=== PATIENT | male | born 1945 | race Caucasian/White ===

== ENCOUNTER 2017-09-14 05:03 | Inpatient (IN) ==
[2017-09-14] MEDS ORDERED: 0.9 % Sodium Chloride 1,000 ML IVC ONE (05:09)
--- NOTE | 2017-09-14 05:29 | Emergency Department Note ---
START Narrative - START START: Nursing notes a been reviewed. Vital signs have been reviewed. 72-year-old male with lung cancer diagnosed last year, recently completed three rounds of radiation therapy presents from home for evaluation of "coughing up blood since yesterday." He states that yesterday he had some blood streaks in the sputum. This morning It has been "just blood". He is feeling a little more short of breath than usual. He is afebrile and is not tachycardic. Blood pressure is on the low side of normal. Oxygen saturation is at 89% on 3 L by nasal cannula. This increases to 96% on nonrebreather. He has a small amount of bright red blood in the posterior pharynx and has had some surgical changes to the right side of the nose. However, I do not see any blood in the nares. He has an emesis basin with approximately 20 mL of bright red blood. He has coarse rhonchi in the right base, but otherwise is clear. Two large-bore IVs have been ordered along with labs. CTA will be ordered If his creatinine is amenable. Case has been discussed with Dr. Tadeo. He has had [id number] time with the patient and agrees with the assessment and plan to keep the patient here. He states that we do have pulmonology available. <Muna Ramirez - Last Filed: 09/14/17 05:19> Attestation Statement - Attestation Attestation: I, Kevin Tadeo MD, personally evaluated this patient and discussed their management with the midlevel provicer, PAC/NAILING MACHINE OPERATOR [employer]. I reviewed the midlevel provider 's note and agree with the documented findings, medical decision making, and plan of care. 72-year-old male with history of known lung cancer who just finished radiation treatments a few weeks ago presents to the emergency department with a complaint of some increased shortness of breath for the past one week. He developed a cough 3 days ago. Yesterday he coughed up some sputum with streaks of blood and this morning he woke up thinking up gross bright red blood. On examination patient is a well-developed well-nourished male in no acute distress. He is mildly tachypneic. He is alert and oriented 3. There is no cyanosis or diaphoresis. Breath sounds are decreased bilaterally, more so on the left. There are a few scattered wheezes on the right. Chest is nontender to palpation. Heart regular rate and rhythm. Abdomen soft with normal bowel sounds. Workup initiated. Hemoglobin 15. Chest x-ray shows an enlarging right lower lobe nodule and persistent opacity adjacent to the left hilum. At shift change patient was signed over to the oncoming mid-level provider, Zbigniew Novak, and the Physician, Dr. Gaspar. <Kevin Tadeo - Last Filed: 09/14/17 06:17>
[2017-09-14 05:36] LABS: Basophils # 0.1 K/mcL (0.0-0.2); Basophils % 1.3 %; Eosinophils # 1.2 K/mcL (0.0-0.6); Eosinophils % 14.3 %; Hematocrit 42.9 % (37.5-50.1); Hemoglobin 15.1 g/dL (12.9-16.9); Immature Granulocytes % 0.2 % (0-4); Immature Platelets 4.9 % (1.1-6.1); Lymphocytes # 2.2 K/mcL (0.6-4.6); Mean Corpuscular HGB Conc 35.2 g/dL (31.6-35.5); Mean Corpuscular Hemoglobin 34.1 pg (28.0-33.3); Mean Corpuscular Volume 96.8 fL (83.0-100.0); Mean Platelet Volume 9.5 fL (9.4-12.4); Monocytes # 0.7 K/mcL (0.0-1.3); Monocytes % 8.5 %; Neutrophils # 4.1 K/mcL (1.6-8.9); Platelet Count 197 K/mcL (140-400); Red Blood Count 4.43 M/mcL (4.19-5.50); Red Cell Distribution Width 12.7 % (11.5-14.5); Segmented Neutrophils % 49.7 %
[2017-09-14 05:47] LABS: BUN/Creatinine Ratio 5 (6-26); Calcium 9.3 mg/dL (8.6-10.8); Carbon Dioxide 29 mEq/L (19-29); Chloride 102 mEq/L (98-109); Glucose 112 mg/dL (70-99); Osmolality,Calculated 284 (280-300); Potassium 3.2 mEq/L (3.5-4.5); Prothrombin Time 10.4 Seconds (9.4-12.1); Sodium 138 mEq/L (136-145); eGFR For African Americans > 60 (> 60); eGFR For Non-African Americans > 60 (> 60)
[2017-09-14 05:48] LABS: Blood Urea Nitrogen 4 mg/dL (8-26)
--- NOTE | 2017-09-14 06:40 | Emergency Department Note ---
Disposition Clinical Impression: Adenocarcinoma of right lung, Hemoptysis, Shortness of breath Disposition: Admitted As Inpatient Condition: Fair [facility]errals: [facility] [Primary Care Provider[facility] - Forms: ED Satisfaction Letter, Work/School Release Time of Disposition: 08:17 SOB HPI - General Chief Complaint: ED General Medical Stated Complaint: coughing up blood Time Seen by Provider: 09/14/17 05:09 Source: patient Mode of arrival: ambulatory Limitations: no limitations Nursing Notes Reviewed: Yes Vital Signs Reviewed: Yes - History of Present Illness 72-year-old male who presents for complaints of "coughing up blood since yesterday". He states that yesterday, his sputum was only blood streaked, however this changed to Lester red blood in his sputum. He complains of worsening shortness of breath as well. He recently completed 3 rounds of radiation therapy. His oncologist is here at the cancer center. He states he is unsure as to whether or not they are going to begin him on chemotherapy next. He states "at first I thought I might of been getting the flu". He denies any fever, chills, nausea, vomiting, abdominal pain, or pain with inspiration. He denies any chest pain. Pt Subjective Complaint: shortness of breath (With lester hemoptysis) Severity: moderate Consistency/Duration: gradually worsening Improves with: oxygen Known history of: other (Lung cancer) Associated symptoms: Reports: cough, sputum production, hemoptysis. Denies: pain with inspiration, fever, wheezing, diaphoresis, nausea/vomiting, abdominal pain Treatment prior to arrival: none Cough present: Yes Sputum Color: Lester Red Blood - Related Data Home oxygen amount: none Home Medications Medication Instructions Recorded Confirmed Albuterol Sulfate [Albuterol 2 puff IH Q6HR PRN 07/03/17 08/19/17 Inhaler] Aspirin Enteric Coated [Aspirin EC] 325 mg PO DAILY 07/03/17 08/19/17 Atorvastatin Calcium [Lipitor] 0.5 tab PO DAILY 07/03/17 08/19/17 Lisinopril [Zestril] 40 mg PO DAILY 07/03/17 08/19/17 Metoprolol [Lopressor] 0.5 tab PO BID 07/03/17 08/19/17 Mometasone Furoate [Asmanex] 2 puff IH BID 07/03/17 08/19/17 Multivitamin [Multi-Day Vitamins] 1 each PO DAILY 07/03/17 08/19/17 OLANZapine [Zyprexa] 5 mg PO QID PRN 07/03/17 08/19/17 amLODIPine [Norvasc] 5 mg PO DAILY 07/03/17 08/19/17 hydrOXYzine HCl [Hydroxyzine HCl] 25 mg PO QID PRN 07/03/17 08/19/17 hydroCHLOROthiazide 0.5 tab PO DAILY 07/03/17 08/19/17 [Hydrochlorothiazide] Allergies Allergy/AdvReac Type Severity Reaction Status Date / Time codeine Allergy Hives Verified 08/19/17 10:49 All systems ED: reviewed and negative except as stated. Constitutional: Denies: fever, chills, weakness, weight change Eyes: Denies: eye pain, eye discharge, vision change ENT ED: Denies: ear pain, throat pain, dental pain, hearing loss, epistaxis, congestion, dysphagia Cardiovascular: Denies: chest pain, palpitations, dyspnea on exertion, edema, syncope Respiratory: Reports: as per HPI, cough, dyspnea, hemoptysis. Denies: wheezes, stridor Gastrointestinal: Denies: abdominal pain, nausea, vomiting, diarrhea, constipation, hematemesis, melena, hematochezia Genitourinary: Denies: urgency, dysuria, frequency, hematuria Musculoskeletal: Denies: back pain, neck pain, arthralgia, myalgia Integumentary: Denies: rash, abrasion, lesions Neurological: Denies: headache, weakness, numbness, paresthesias, confusion, abnormal gait, vertigo Psychiatric: Denies: anxiety, depression, suicidal thoughts, homicidal thoughts , auditory hallucinations, visual hallucinations Endocrine: Denies: fatigue Hematological/Lymphatic: Denies: easy bleeding, easy bruising Allergic/Immunologic: Denies: facial swelling, urticaria Past Medical History - Past Medical History Attestation: Yes The following information was validated with the patient. Source: patient, nursing notes reviewed Medical history: Reports: cancer, COPD, hyperlipidemia, hypertension - Social History Smoking Status: Current every day smoker Smokeless Tobacco Status: No Alcohol use: Reports: heavy Drug use: Reports: none Physical Exam - General General appearance: alert, in no apparent distress - Head Head exam: atraumatic, normocephalic, normal inspection - Eye Eye exam: Present: normal appearance, PERRL, EOMI. Absent: nystagmus - ENT ENT exam: mucous membranes moist - Neck Neck exam: Present: normal inspection, full ROM, trachea midline - Chest Chest inspection: Present: normal inspection, symmetric chest wall rise - Respiratory Respiratory exam: Present: other (Lungs sounds coarse to auscultation, posterior aspect, left lower chest). Absent: respiratory distress, wheezes, stridor, accessory muscle use, prolonged expiratory phase - Cardiovascular Cardiovascular exam: Present: regular rate, normal rhythm, normal heart sounds - Abdominal Exam Abdominal exam: Present: soft, Non-Tender, normal bowel sounds - Extremities Exam Extremities exam: Present: normal inspection, full ROM. Absent: tenderness, pedal edema - Neurological Exam Neurological exam: Present: alert, oriented X3 - Psychiatric Psychiatric exam: Present: normal affect, normal mood - Skin Skin exam: Present: warm, dry, intact, normal color Course Course Narrative: This patient's case has been discussed with Dr. Tadeo. Dr. Tadeo has had a [id number] evaluation with the patient. 0730: Spoke with Dr. Torres, pulmonary regional liaison. Dr. Torres recommends IV Rocephin, azithromycin, with holding his daily aspirin, and states that the patient can be placed on 2 N. and that he will see the patient on the floor as a consult. 0810: I spoke with Dr. Chavira of the hospitalist service, who accepts the patient for admission to his service. 0905: I spoke with Dr. Torres again after being notified by bed management that the only bed available at this time and for the foreseeable future is a bed on 3B. The patient is saturating 98% on [address] Torres states that he feels comfortable with the patient going to 3B and that he will monitor the patient and check on him frequently. Vital Signs Temperature 98.5 F 09/14/17 05:11 Pulse Rate 99 09/14/17 05:11 Respiratory Rate 20 09/14/17 05:11 Blood Pressure 162/93 09/14/17 05:11 O2 Sat by Pulse Oximetry 89 09/14/17 05:11 Temperature 98.5 F 09/14/17 05:11 Pulse Rate 92 09/14/17 08:56 Respiratory Rate 18 09/14/17 08:56 Blood Pressure 141/84 09/14/17 08:56 O2 Sat by Pulse Oximetry 97 09/14/17 08:56 Oxygen Delivery Oxygen Delivery Nasal Cannula Shortness of Breath/Dyspnea - Medical Records Medical records reviewed: Yes I reviewed the patient's medical records. - Lab Data Lab results reviewed: Yes I reviewed the patient's lab results. Lab results narrative: Laboratory Last Values WBC 8.3 K/mcL (4.3-11.1) 09/14/17 05:25 RBC 4.43 M/mcL (4.19-5.50) 09/14/17 05:25 Hgb 15.1 g/dL (12.9-16.9) 09/14/17 05:25 Hct 42.9 % (37.5-50.1) 09/14/17 05:25 MCV 96.8 fL (83.0-100.0) 09/14/17 05:25 MCH 34.1 pg (28.0-33.3) H 09/14/17 05:25 MCHC 35.2 g/dL (31.6-35.5) 09/14/17 05:25 RDW 12.7 % (11.5-14.5) 09/14/17 05:25 Plt Count 197 K/mcL (140-400) 09/14/17 05:25 MPV 9.5 fL (9.4-12.4) 09/14/17 05:25 Immature Gran % 0.2 % (0-4) 09/14/17 05:25 Seg Neutrophils % 49.7 % 09/14/17 05:25 Lymphocytes % 26.0 % 09/14/17 05:25 Monocytes % 8.5 % 09/14/17 05:25 Eosinophils % 14.3 % 09/14/17 05:25 Basophils % 1.3 % 09/14/17 05:25 Neutrophils # 4.1 K/mcL (1.6-8.9) 09/14/17 05:25 Lymphocytes # 2.2 K/mcL (0.6-4.6) 09/14/17 05:25 Monocytes # 0.7 K/mcL (0.0-1.3) 09/14/17 05:25 Eosinophils # 1.2 K/mcL (0.0-0.6) H 09/14/17 05:25 Basophils # 0.1 K/mcL (0.0-0.2) 09/14/17 05:25 Immature Plt Fraction 4.9 % (1.1-6.1) 09/14/17 05:25 PT 10.4 Seconds (9.4-12.1) 09/14/17 05:25 INR 1.0 09/14/17 05:25 APTT 30.0 Seconds (26.0-36.0) 09/14/17 05:25 Sodium 138 mEq/L (136-145) 09/14/17 05:25 Potassium 3.2 mEq/L (3.5-4.5) L 09/14/17 05:25 Chloride 102 mEq/L (98-109) 09/14/17 05:25 Carbon Dioxide 29 mEq/L (19-29) 09/14/17 05:25 BUN 4 mg/dL (8-26) L 09/14/17 05:25 Creatinine 0.73 mg/dL (0.72-1.25) 09/14/17 05:25 Est GFR ( Amer) > 60 (> 60) 09/14/17 05:25 Est GFR (Non-Af Amer) > 60 (> 60) 09/14/17 05:25 BUN/Creatinine Ratio 5 (6-26) L 09/14/17 05:25 Glucose 112 mg/dL (70-99) H 09/14/17 05:25 Calculated Osmolality 284 (280-300) 09/14/17 05:25 Lactic Acid 1.1 mmol/L (0.5-2.2) 09/14/17 05:25 Calcium 9.3 mg/dL (8.6-10.8) 09/14/17 05:25 Troponin I 0.02 ng/mL (0-0.03) 09/14/17 05:25 B-Natriuretic Peptide 130 pg/mL (0-100) H 09/14/17 05:25 Result diagrams: 09/14/17 05:25 09/14/17 05:25 Lab Results 09/14/17 09/14/17 09/14/17 Range/Units 05:25 05:25 05:25 WBC 8.3 (4.3-11.1) K/mcL RBC 4.43 (4.19-5.50) M/mcL Hgb 15.1 (12.9-16.9) g/dL Hct 42.9 (37.5-50.1) % MCV 96.8 (83.0-100.0) fL MCH 34.1 H (28.0-33.3) pg MCHC 35.2 (31.6-35.5) g/dL RDW 12.7 (11.5-14.5) % Plt Count 197 (140-400) K/mcL MPV 9.5 (9.4-12.4) fL Immature Gran % 0.2 (0-4) % Seg Neutrophils % 49.7 % Lymphocytes % 26.0 % Monocytes % 8.5 % Eosinophils % 14.3 % Basophils % 1.3 % Neutrophils # 4.1 (1.6-8.9) K/mcL Lymphocytes # 2.2 (0.6-4.6) K/mcL Monocytes # 0.7 (0.0-1.3) K/mcL Eosinophils # 1.2 H (0.0-0.6) K/mcL Basophils # 0.1 (0.0-0.2) K/mcL Immature Plt Fraction 4.9 (1.1-6.1) % PT 10.4 (9.4-12.1) Seconds INR 1.0 APTT 30.0 (26.0-36.0) Seconds Sodium 138 (136-145) mEq/L Potassium 3.2 L (3.5-4.5) mEq/L Chloride 102 (98-109) mEq/L Carbon Dioxide 29 (19-29) mEq/L BUN 4 L (8-26) mg/dL Creatinine 0.73 (0.72-1.25) mg/dL Est GFR ( Amer) > 60 (> 60) Est GFR (Non-Af Amer) > 60 (> 60) BUN/Creatinine Ratio 5 L (6-26) Glucose 112 H (70-99) mg/dL Calculated Osmolality 284 (280-300) Lactic Acid (0.5-2.2) mmol/L Calcium 9.3 (8.6-10.8) mg/dL Troponin I (0-0.03) ng/mL B-Natriuretic Peptide (0-100) pg/mL Blood Type Antibody Screen 09/14/17 09/14/17 09/14/17 Range/Units 05:25 05:25 05:25 WBC (4.3-11.1) K/mcL RBC (4.19-5.50) M/mcL Hgb (12.9-16.9) g/dL Hct (37.5-50.1) % MCV (83.0-100.0) fL MCH (28.0-33.3) pg MCHC (31.6-35.5) g/dL RDW (11.5-14.5) % Plt Count (140-400) K/mcL MPV (9.4-12.4) fL Immature Gran % (0-4) % Seg Neutrophils % % Lymphocytes % % Monocytes % % Eosinophils % % Basophils % % Neutrophils # (1.6-8.9) K/mcL Lymphocytes # (0.6-4.6) K/mcL Monocytes # (0.0-1.3) K/mcL Eosinophils # (0.0-0.6) K/mcL Basophils # (0.0-0.2) K/mcL Immature Plt Fraction (1.1-6.1) % PT (9.4-12.1) Seconds INR APTT (26.0-36.0) Seconds Sodium (136-145) mEq/L Potassium (3.5-4.5) mEq/L Chloride (98-109) mEq/L Carbon Dioxide (19-29) mEq/L BUN (8-26) mg/dL Creatinine (0.72-1.25) mg/dL Est GFR ( Amer) (> 60) Est GFR (Non-Af Amer) (> 60) BUN/Creatinine Ratio (6-26) Glucose (70-99) mg/dL Calculated Osmolality (280-300) Lactic Acid 1.1 (0.5-2.2) mmol/L Calcium (8.6-10.8) mg/dL Troponin I 0.02 (0-0.03) ng/mL B-Natriuretic Peptide 130 H (0-100) pg/mL Blood Type Antibody Screen 09/14/17 09/14/17 Range/Units 05:25 07:02 WBC (4.3-11.1) K/mcL RBC (4.19-5.50) M/mcL Hgb (12.9-16.9) g/dL Hct (37.5-50.1) % MCV (83.0-100.0) fL MCH (28.0-33.3) pg MCHC (31.6-35.5) g/dL RDW (11.5-14.5) % Plt Count (140-400) K/mcL MPV (9.4-12.4) fL Immature Gran % (0-4) % Seg Neutrophils % % Lymphocytes % % Monocytes % % Eosinophils % % Basophils % % Neutrophils # (1.6-8.9) K/mcL Lymphocytes # (0.6-4.6) K/mcL Monocytes # (0.0-1.3) K/mcL Eosinophils # (0.0-0.6) K/mcL Basophils # (0.0-0.2) K/mcL Immature Plt Fraction (1.1-6.1) % PT (9.4-12.1) Seconds INR APTT (26.0-36.0) Seconds Sodium (136-145) mEq/L Potassium (3.5-4.5) mEq/L Chloride (98-109) mEq/L Carbon Dioxide (19-29) mEq/L BUN (8-26) mg/dL Creatinine (0.72-1.25) mg/dL Est GFR ( Amer) (> 60) Est GFR (Non-Af Amer) (> 60) BUN/Creatinine Ratio (6-26) Glucose (70-99) mg/dL Calculated Osmolality (280-300) Lactic Acid 0.6 (0.5-2.2) mmol/L Calcium (8.6-10.8) mg/dL Troponin I (0-0.03) ng/mL B-Natriuretic Peptide (0-100) pg/mL Blood Type O POSITIVE Antibody Screen NEGATIVE - Radiology Data Radiology results reviewed: Yes I reviewed the patient's radiology results. Chest X-Ray 09/14/17 05:09 IMPRESSION: 1. Enlarging right lower lobe nodule. 2. Persistent opacity adjacent to the left hilum, metabolically active on PET scan. Persistent inflammation or infection should be considered. D/ / Tommie Cortes MD / Tommie Cortes MD Interpreting Provider: Tommie Cortes MD Chest CTA 09/14/17 05:58 IMPRESSION: 1. No definite scan evidence for pulmonary embolus. 2. Enlarging right lower lobe mass consistent with the patient's primary bronchogenic carcinoma. Surrounding ground-glass opacity may represent posttreatment change or hemorrhage. 3. Bilateral ground-glass opacities are probably infectious or inflammatory. D/ / Tommie Cortes MD / Tommie Cortes MD Interpreting Provider: Tommie Cortes MD - EKG Data EKG attestation: Yes I reviewed and interpreted this EKG. EKG results narrative: EKG reviewed by Dr. Tadeo as well. EKG shows a supraventricular rhythm with ST deviation and marked T-wave abnormality. Ventricular rate 97 beats per minute. QRS duration 96, QT/QTc interval 447/501. No old EKG for comparison.
[2017-09-14] MEDS ORDERED: Azithromycin 500 MG in D5% in Water 250 ML IVPB ONE (07:30)
[2017-09-14] MEDS ORDERED: *HR* LORazepam 0.5 MG TABLET PO ONE (08:55)
[2017-09-14] MEDS ORDERED: *HR* Succinylcholine 200 MG/10 ML VIAL IVP ONE (09:40)
[2017-09-14] MEDS ORDERED: Ondansetron 4 MG/2 ML VIAL IVP ONE (09:40)
[2017-09-14] MEDS ORDERED: *HR* Rocuronium Bromide 50 MG/5 ML VIAL IVC ONE (09:40)
[2017-09-14] MEDS ORDERED: Lidocaine -MPF 4% 5 ML AMPUL INFILT ONE (09:40)
[2017-09-14] MEDS ORDERED: *HR* Propofol 200 MG/20 ML VIAL IVP ONE (09:40)
[2017-09-14] MEDS ORDERED: Lidocaine -MPF 2% 5 ML VIAL INFILT ONE (09:40)
[2017-09-14 09:48] LABS: Magnesium 1.6 mg/dL (1.6-2.6); Phosphorous 2.5 mg/dL (2.3-4.7)
[2017-09-14] MEDS ORDERED: Ondansetron 4 MG/2 ML VIAL IVP PRN (10:59)
[2017-09-14] MEDS ORDERED: Naloxone 0.4 MG/ML INJ IVP PRN (10:59)
[2017-09-14] MEDS: Ipratropium/Albuterol Neb 3 ML IH SCH ×2 (11:02→17:02)
--- NOTE | 2017-09-14 11:02 | Pulmonology Consult Note ---
Date of Encounter: 09/14/17 Time of Encounter: 10:00 Assessment and Plan (1) Acute respiratory failure with hypoxia Current Visit: Yes Status: Acute Patient has developed acute hypoxic respiratory failure can be due to bleeding from the the airways due to any endobronchial lesion vs intraalveolar hemorrhage evidenced by ground glass opacties can be due to typical/atypical bacterial infection will cover with CAP coverage . Will do Bronchoscopy tomorrow morning under MAC for airway exam looking for endobronchial lesion if negative will request ENT to do upper airway exam/ GI evaluation . Bronchoscopy is scheduled tomorrow 8 am. (2) COPD (chronic obstructive pulmonary disease) Current Visit: No Status: Chronic Patient to be on Bronchodilators and steroids will treat as COPD exacerbation Qualifiers: COPD type: unspecified COPD Qualified Code(s): J44.9 - Chronic obstructive pulmonary disease, unspecified (3) Community acquired pneumonia Current Visit: Yes Status: Acute Will treat with Ceftriaxone and Azithromycin Qualifiers: Qualified Code(s): J18.9 - Pneumonia, unspecified organism History of Present Illness Consult date: 09/14/17 Requesting physician: Juana Kramer Reason for consult: other (hemoptysis ) Chief complaint: Coughing up blood History of present illness: 72 year old male with Adenocarcinoma Right lower lobe has been getting sessions of SBRT , he was doing well on that for the past 8-9 days he started to have flu like symptoms increased cough and sputum production for the past 24-48 hrs he started coughing up blood , patient is on Aspirin 325 mg denies any other anticoagulant use ,patient has CAD had a stent in 2009 , denies any chest pain had some shortness of breadth , denies any fever or chills now denies any other constitutional symptoms.Pulmonary was consulted for evaluation of hemoptysis , patient has new Oxygen requirements as denies using at Oxygen at home . Past Med Surg Social Fam HX - Past Medical History Medical history: cancer, COPD, hyperlipidemia, hypertension - Social History Smoking Status: Current every day smoker Smokeless Tobacco Status: No Alcohol use: heavy Drug use: none Medications and Allergies Albuterol Sulfate [Albuterol Inhaler] 2 puff IH Q6HR PRN 07/03/17 [History] Aspirin Enteric Coated [Aspirin EC] 325 mg PO DAILY 07/03/17 [History] Atorvastatin Calcium [Lipitor] 10 mg PO DAILY 07/03/17 [History] Lisinopril [Zestril] 40 mg PO DAILY 07/03/17 [History] Metoprolol [Lopressor] 25 mg PO BID 07/03/17 [History] Mometasone Furoate [Asmanex] 2 puff IH BID 07/03/17 [History] Multivitamin [Multi-Day Vitamins] 1 each PO DAILY 07/03/17 [History] OLANZapine [Zyprexa] 5 mg PO QID PRN 07/03/17 [History] amLODIPine [Norvasc] 5 mg PO DAILY 07/03/17 [History] hydrOXYzine HCl [Hydroxyzine HCl] 25 mg PO QID PRN 07/03/17 [History] hydroCHLOROthiazide [Hydrochlorothiazide] 12.5 mg PO DAILY 07/03/17 [History] Acamprosate Calcium 333 mg PO TID 09/14/17 [History] Ranitidine HCl [Heartburn Relief] 150 mg PO BID 09/14/17 [History] 3 Allergy/AdvReac Type Severity Reaction Status Date / Time codeine Allergy Hives Verified 08/19/17 10:49 All Systems: A 10-system review of systems was performed and is negative for pertinent findings except as documented above in the HPI. Physical Examination Vital Signs: Vital Signs, Last 4 Hours Pulse Resp BP Pulse Ox 09/14/17 10:59 85 18 193/95 96 09/14/17 10:48 73 18 152/74 96 09/14/17 10:11 84 18 154/84 96 ENT: other (lips has some dried blood.) Auscultation: left: clear, right: rales (very scattered ) Results - Laboratory Findings CBC and BMP: 09/14/17 05:25 09/14/17 05:25 PT/INR, D-dimer PT 10.4 Seconds (9.4-12.1) 09/14/17 05:25 Abnormal lab findings: Abnormal lab results MCH 34.1 pg (28.0-33.3) H 09/14/17 05:25 Eosinophils # 1.2 K/mcL (0.0-0.6) H 09/14/17 05:25 Potassium 3.2 mEq/L (3.5-4.5) L 09/14/17 05:25 BUN 4 mg/dL (8-26) L 09/14/17 05:25 BUN/Creatinine Ratio 5 (6-26) L 09/14/17 05:25 Glucose 112 mg/dL (70-99) H 09/14/17 05:25 B-Natriuretic Peptide 130 pg/mL (0-100) H 09/14/17 05:25 Consult Discharge Plan - Plan [facility]errals: [facility] [Primary Care Provider] -
--- NOTE | 2017-09-14 12:00 | Internal Med History&Physical ---
Date of Encounter: 09/14/17 Time of Encounter: 11:56 Assessment and Plan (1) Acute respiratory failure with hypoxia Current visit: Yes Status: Acute Upon presentation patient's SPO2 was in the upper 80s. He has been experiencing hemoptysis for the past 24 hours-patient does have adenocarcinoma of the lung is undergoing radiation treatment -we will continue with oxygen support we did consult pulmonology who will perform bronchoscopy tomorrow (2) Adenocarcinoma of right lung Current visit: Yes Status: Acute Patient has been diagnosed with lung cancer. He has been seen by Dr. Mello- oncology-he received his first radiation treatment probably 2 weeks ago. We will continue with outpatient treatment and consult oncology as needed. (3) Hemoptysis Current visit: Yes Status: Acute For the past 24 hours patient has been coughing up bright red to dark colored sputum. He does have a history of lung cancer and is receiving radiation treatment. He is also on aspirin. We will hold aspirin for now. Pulmonology has been consulted-patient will be nothing by mouth after midnight for bronchoscopy in a.m. (4) Hypertension Current visit: No Status: Chronic Presently controlled we will continue with home medications Qualifiers: Hypertension type: essential hypertension Qualified Code(s): I10 - Essential (primary) hypertension (5) CAD (coronary artery disease) Current visit: No Status: Chronic We will continue with beta bartolome and statin and Jose we will hold aspirin for now due to hemoptysis Nitrates as needed for chest pain Qualifiers: Coronary Disease-Associated Artery/Lesion type: [place] artery [place] vs. transplanted heart: [place] heart Associated angina: without angina Qualified Code(s): I25.10 - Atherosclerotic heart disease of [place] coronary artery without angina pectoris (6) Tobacco use Current visit: No Status: Chronic Encourage patient to stop smoking-patient expressed interest in quitting offer nicotine patch which patient agreed to use (7) COPD (chronic obstructive pulmonary disease) Current visit: No Status: Chronic Patient does have some scattered wheezes we will continue with bronchodilators and oxygen Steroid to taper Qualifiers: COPD type: unspecified COPD Qualified Code(s): J44.9 - Chronic obstructive pulmonary disease, unspecified (8) DVT prophylaxis Current visit: Yes Status: Acute SCDs due to hemoptysis (9) Community acquired pneumonia Current visit: Yes Status: Acute Continue with azithromycin and Rocephin broncho dilators Oxygen Steroid taper Qualifiers: Laterality: right Lung location: unspecified part of lung Qualified Code( s): J18.9 - Pneumonia, unspecified organism Internal Medicine - H&P: HPI Chief complaint: Cough hemoptysis Admitted From: Emergency Dept Plans for Post Hospital Care: Home History of present illness: Mr. Pack is a 72 year old male past medical history of COPD and lung cancer, melanoma hyperlipidemia hypertension [place] in 2010 stent placement. Patient has history of lung cancer and underwent radiation treatment approximately 2 weeks ago. He states that he has a chronic cough and has a large amount of sputum production however since yesterday he has been experiencing hemoptysis. Over the past 24 hours the hemoptysis has increased with more more blood. He denies any fevers chills nausea vomiting diarrhea chest pain or abdominal pain. He does have some shortness of breath he is not on any oxygen at home. He does continue to smoke a pack a day. He presented to the ER with the above complaint. Upon presentation patient's saturation was 89% was placed on oxygen which did improve his SPO2 to 93. CT of chest was obtained which did show right lower lobe mass as well as bilateral groundglass opacities suspect infectious or inflammatory. ER did speak with pulmonary Dr Torres who will see patient on consult. Requested patient be started on Rocephin as well as hold his aspirin. Patient has been admitted for further workup and evaluation. Presently patient is not in any respiratory distress his lung sounds have scattered rhonchi wheezes diminished in the left lower base. He does have dark red sputum. He is hemodynamically stable this time. Past Med Surg Social Fam HX - Past Medical History Medical history: cancer, COPD, hyperlipidemia, hypertension - Social History Smoking Status: Current every day smoker Smokeless Tobacco Status: No Alcohol use: heavy Drug use: none - Family History Mother Living Status: Still Living Hx Family Cardiac Disorders: No Hx Family Respiratory Disorders: No Hx Family Cancer: Yes (colon cx) Hx Family GI Disorders: No Hx Family Genitourinary Disorders: No Hx Family Endocrine Disorder: No Hx Family Musculoskeletal Disorders: No Hx Family Neuromuscular Disorders: No Hx Family Neurologic Disorders: No Hx Family HEENT Disorders: No Hx Family Autoimmune Disorders: No Hx Family Reproductive Disorders: No Hx Family Psychosocial Disorders: No Hx Family Medical Disorders: (colostomy) Father History Unknown: Yes - Additional Family History Additional family history: Reviewed hypertension and cancer Internal Medicine - H&P: Meds Albuterol Sulfate [Albuterol Inhaler] 2 puff IH Q6HR PRN 07/03/17 [History] Aspirin Enteric Coated [Aspirin EC] 325 mg PO DAILY 07/03/17 [History] Atorvastatin Calcium [Lipitor] 10 mg PO DAILY 07/03/17 [History] Lisinopril [Zestril] 40 mg PO DAILY 07/03/17 [History] Metoprolol [Lopressor] 25 mg PO BID 07/03/17 [History] Mometasone Furoate [Asmanex] 2 puff IH BID 07/03/17 [History] Multivitamin [Multi-Day Vitamins] 1 each PO DAILY 07/03/17 [History] OLANZapine [Zyprexa] 5 mg PO QID PRN 07/03/17 [History] amLODIPine [Norvasc] 5 mg PO DAILY 07/03/17 [History] hydrOXYzine HCl [Hydroxyzine HCl] 25 mg PO QID PRN 07/03/17 [History] hydroCHLOROthiazide [Hydrochlorothiazide] 12.5 mg PO DAILY 07/03/17 [History] Acamprosate Calcium 333 mg PO TID 09/14/17 [History] Ranitidine HCl [Heartburn Relief] 150 mg PO BID 09/14/17 [History] 3 Allergy/AdvReac Type Severity Reaction Status Date / Time codeine Allergy Hives Verified 08/19/17 10:49 All Systems PM: A 10-system review of systems was performed and is negative for pertinent findings except as documented above in the HPI. - Constitutional Constitutional: weight loss, no chills, no fever(s), no night sweats - EENT Eyes: no change in vision, no discharge, no pain, no photophobia Nose, mouth and throat: no dysphagia, no nasal discharge, no neck pain, no sore throat - Cardiovascular Cardiovascular ROS IM: no chest pain, no diaphoresis, no dyspnea, no lightheadedness, no palpitations, no syncope - Respiratory Respiratory: cough, dyspnea, hemoptysis, excessive phlegm production, change in phlegm color, no wheezing - Gastrointestinal Gastrointestinal: diarrhea, nausea, no abdominal pain, no hematemesis, no hematochezia, no melena, no vomiting - Musculoskeletal Musculoskeletal ROS IM: no numbness, no tingling - Integumentary Integumentary IM: no rash, no unusual bruising - Neurological Neurological ROS: no confusion, no convulsions, no focal weakness, no numbness, no tingling, no tremor(s) - Hematologic/Lymphatic Hematologic/Lymphatic: no easy bruising - Constitutional Vitals: Temp Pulse Resp BP Pulse Ox 98.5 F 84 18 164/89 99 09/14/17 05:11 09/14/17 11:01 09/14/17 11:01 09/14/17 11:01 09/14/17 11:01 General appearance: Present: A&O X 3, underweight - Head Head exam: Present: atraumatic, normocephalic - Eye Eye exam: Present: PERRL, conjuntiva pink, sclera anicteric Pupils: Present: PERRL - Neck Neck exam general surgery: Present: supple, trachea midline. Absent: lymphadenopathy - Respiratory Respiratory exam: Present: rhonchi, wheezes. Absent: accessory muscle use - Cardiovascular Cardiovascular exam: Present: RRR, +S1, +S2. Absent: diastolic murmur, gallop, rubs, systolic murmur - GI/Abdominal GI/Abdominal exam: Present: normal bowel sounds, soft, no peritoneal signs. Absent: distended, tenderness - Extremities Exam Extremities exam: Present: warm, radial pulses palpable and symmetrical. Absent : calf tenderness, cyanotic, pedal edema - Neurological Exam Neurological exam: Present: CN II-XII intact, oriented X3, no focal deficits. Absent: pronater drift, facial droop, speech deficit - Skin Skin exam: Present: dry, intact Internal Med - H&P Results - Labs CBC & Chem 7: 09/14/17 05:25 09/14/17 05:25 - EKG Data EKG shows normal: sinus rhythm - Diagnostic Studies Other Images Additional comments: Chest X-Ray 09/14/17 05:09 IMPRESSION: 1. Enlarging right lower lobe nodule. 2. Persistent opacity adjacent to the left hilum, metabolically active on PET scan. Persistent inflammation or infection should be considered. D/ / Tommie Cortes MD / Tommie Cortes MD Interpreting Provider: Tommie Cortes MD Chest CTA 09/14/17 05:58 IMPRESSION: 1. No definite scan evidence for pulmonary embolus. 2. Enlarging right lower lobe mass consistent with the patient's primary bronchogenic carcinoma. Surrounding ground-glass opacity may represent posttreatment change or hemorrhage. 3. Bilateral ground-glass opacities are probably infectious or inflammatory. D/ / Tommie Cortes MD / Tommie Cortes MD Interpreting Provider: Tommie Cortes MD
[2017-09-14] MEDS: Insulin LISPRO 300 UNITS/3 ML VIAL SQ SCH ×2 (12:42→18:07)
[2017-09-14] MEDS: Nicotine 14 MG PATCH.TD24 TD SCH (14:32)
[2017-09-14] MEDS: ACAMPROSATE CALCIUM 333 MG PO SCH ×2 (14:33→20:08)
[2017-09-14] MEDS ORDERED: *HR* Dextrose 50 % in Water (Syg) 50 ML SYRINGE IVP PRN (17:28)
[2017-09-14] MEDS ORDERED: D5% in Water 1,000 ML IVC PRN (17:28)
[2017-09-14] MEDS ORDERED: Dextrose Gel 15 GM PO PRN ×2 (17:28)
[2017-09-14] MEDS: MethylPREDNISolone 40 MG/ML VIAL IVP SCH ×2 (17:52→23:38)
[2017-09-14 19:43] LABS: Hematocrit 39.9 % (37.5-50.1)
[2017-09-14] MEDS ORDERED: *HR* LORazepam 1 MG TABLET PO ONE (19:46)
[2017-09-14 20:00] LABS: Hemoglobin 13.5 g/dL (12.9-16.9)
[2017-09-14] MEDS ORDERED: Magnesium Sulfate 2 GM in D5% in Water 100 ML IVPB ONE (20:04)
[2017-09-14] MEDS: MOMETASONE FUROATE IH SCH (23:13)
[2017-09-15] MEDS: Ipratropium/Albuterol Neb 3 ML IH SCH ×6 (00:43→19:54)
[2017-09-15 04:38] LABS: Basophils % 0.4 %; Eosinophils % 0.2 %; Hematocrit 36.8 % (37.5-50.1); Hemoglobin 12.5 g/dL (12.9-16.9); Immature Granulocytes % 0.4 % (0-4); Lymphocytes # 0.9 K/mcL (0.6-4.6); Lymphocytes % 18.9 %; Mean Corpuscular Hemoglobin 33.4 pg (28.0-33.3); Mean Corpuscular Volume 98.4 fL (83.0-100.0); Mean Platelet Volume 9.9 fL (9.4-12.4); Monocytes # 0.1 K/mcL (0.0-1.3); Monocytes % 1.8 %; Neutrophils # 3.6 K/mcL (1.6-8.9); Platelet Count 164 K/mcL (140-400); Red Blood Count 3.74 M/mcL (4.19-5.50); Red Cell Distribution Width 12.8 % (11.5-14.5); Segmented Neutrophils % 78.3 %
[2017-09-15 05:11] LABS: BUN/Creatinine Ratio 11 (6-26); Blood Urea Nitrogen 8 mg/dL (8-26); Calcium 8.9 mg/dL (8.6-10.8); Carbon Dioxide 27 mEq/L (19-29); Chloride 102 mEq/L (98-109); Glucose 147 mg/dL (70-99); Osmolality,Calculated 281 (280-300); Sodium 135 mEq/L (136-145); eGFR For African Americans > 60 (> 60); eGFR For Non-African Americans > 60 (> 60)
[2017-09-15 05:13] LABS: Potassium 4.3 mEq/L (3.5-4.5)
[2017-09-15] MEDS: Insulin LISPRO 300 UNITS/3 ML VIAL SQ SCH ×3 (07:37→17:43)
--- NOTE | 2017-09-15 07:41 | Anesthesia Evaluation PreOp ---
Date of Encounter: 09/15/17 Time of Encounter: 07:39 - Past History Planned Operation: Bronchoscopy Cardiac History: [place] (2009), Cardiac Stent (x1 2009, hasn't seen estate manager since stent placement), Other (CAD) Pulmonary History: Smoker, COPD, Other (Lung CA, Hemoptosis) BUTCHER MEAT History: Denies Any Significant HX Other Medical History: Denies Any Significant HX Anesthesia History: Past Anesthesia (none) Alcohol Use: heavy Drug use: none Medications and Allergies Albuterol Sulfate [Albuterol Inhaler] 2 puff IH Q6HR PRN 07/03/17 [History] Aspirin Enteric Coated [Aspirin EC] 325 mg PO DAILY 07/03/17 [History] Atorvastatin Calcium [Lipitor] 10 mg PO DAILY 07/03/17 [History] Lisinopril [Zestril] 40 mg PO DAILY 07/03/17 [History] Metoprolol [Lopressor] 25 mg PO BID 07/03/17 [History] Mometasone Furoate [Asmanex] 2 puff IH BID 07/03/17 [History] Multivitamin [Multi-Day Vitamins] 1 each PO DAILY 07/03/17 [History] OLANZapine [Zyprexa] 5 mg PO QID PRN 07/03/17 [History] amLODIPine [Norvasc] 5 mg PO DAILY 07/03/17 [History] hydrOXYzine HCl [Hydroxyzine HCl] 25 mg PO QID PRN 07/03/17 [History] hydroCHLOROthiazide [Hydrochlorothiazide] 12.5 mg PO DAILY 07/03/17 [History] Acamprosate Calcium 333 mg PO TID 09/14/17 [History] Ranitidine HCl [Heartburn Relief] 150 mg PO BID 09/14/17 [History] 3 Allergy/AdvReac Type Severity Reaction Status Date / Time codeine Allergy Hives Verified 08/19/17 10:49 - Meds/Allergy Pre-op Review Medications Reviewed: Yes Allergies Reviewed: Yes Beta Blockers on Current Med List: Yes If Beta Blockers taken, Date/Time (Last Dose taken): 20:01 09/14/2017 Anesthesia Results - Labs 09/15/17 04:00 09/15/17 04:00 Anesthesia Exam O2 Sat Weight 68.447 kg O2 Sat by Pulse Oximetry 100 O2 Sat by Pulse Oximetry 97 O2 Sat by Pulse Oximetry 97 O2 Sat by Pulse Oximetry 98 O2 Sat by Pulse Oximetry 96 O2 Sat by Pulse Oximetry 97 O2 Sat by Pulse Oximetry 96 O2 Sat by Pulse Oximetry 100 O2 Sat by Pulse Oximetry 100 O2 Sat by Pulse Oximetry 99 O2 Sat by Pulse Oximetry 96 O2 Sat by Pulse Oximetry 96 O2 Sat by Pulse Oximetry 96 O2 Sat by Pulse Oximetry 97 Vital Signs Temp Pulse Resp BP Pulse Ox 98.5 F 99 20 162/93 89 09/14/17 05:11 09/14/17 05:11 09/14/17 05:11 09/14/17 05:11 09/14/17 05:11 Vital Signs/O2 Sat, Most Current Temp Pulse Resp BP Pulse Ox 98.2 F 82 17 135/73 100 09/15/17 06:45 09/15/17 06:45 09/15/17 06:45 09/15/17 06:45 09/15/17 06:45 Height: 5'8'' Weight: 150# NPO (# of Hours): > 8 Hrs Pain Scale: 0 Pain Scale Used: Numeric (1 - 10) - HEENT Pupil (Motor): Pupils equal, EOMI Mallampati: III Teeth: Normal Oral Opening: Greater than 3 - BUTCHER MEAT LOC: Oriented BUTCHER MEAT Motor: Normal RUE, Normal LUE, Normal RLE, Normal LLE, Normal Face BUTCH[employer] MEAT Sensory: Normal: RUE, LUE, RLE, LLE, Face - Cardiac Rhythm: Regular Murmur: None JVD: No Carotid Bruit: No - Pulmonary Breath Sounds: left Clear, right Rales Respiratory Effort: Symmetrical Anesthesia Assess/Plan ASA Score: 4 Modified [place] Scale for Level of Consciousness: Cooperative, oriented, and tranquil Anesthetic Plan: General Autologous Blood: Yes Monitoring Plan: Standard Monitors Recovery Plan: PACU
[2017-09-15] MEDS ORDERED: *HR* FentaNYL (PF) 100 MCG/2 ML VIAL ONE (08:01)
[2017-09-15 08:53] LABS: Source of Body Fluid RML BAL
[2017-09-15 09:01] LABS: Source of Body Fluid LUL BAL
--- NOTE | 2017-09-15 09:12 | Anesthesia Evaluation Post Op ---
Date of Encounter: 09/15/17 Time of Encounter: 09:11 - Vital Signs Vital Signs: Vital Signs/O2 Sat, Most Current Temp Pulse Resp BP Pulse Ox 98.4 F 89 18 146/70 97 09/15/17 09:08 09/15/17 09:08 09/15/17 09:08 09/15/17 09:08 09/15/17 09:08 - Lungs Lungs: Clear Ascult./Percussion - Airway Airway: Non-obstructed - Cardiovascular Regular Rate - Mental Status Mental Status: Alert & Oriented, Answers Appropriately - Pain Pain Scale: 0 Pain Scale used: Numeric (1 - 10) - Nausea Vomiting Nausea Vomiting: Not Present - Hydration Hydration: Tolerates oral liquids, Has not voided - Discharge PostOp Status: Transfer Patient to floor
[2017-09-15] MEDS: ACAMPROSATE CALCIUM 333 MG PO SCH ×3 (09:52→21:04)
[2017-09-15] MEDS: Lisinopril 20 MG TABLET PO SCH (10:01)
[2017-09-15] MEDS: hydroCHLOROthiazide 25 MG TABLET PO SCH (10:01)
[2017-09-15] MEDS: Multivit/Ca/Min/Fe/FA 1 TAB TABLET PO SCH (10:01)
[2017-09-15] MEDS: Nicotine 14 MG PATCH.TD24 TD SCH (10:01)
[2017-09-15] MEDS: amLODIPine 5 MG TABLET PO SCH (10:02)
[2017-09-15] MEDS: Pantoprazole 40 MG VIAL IVP SCH (10:02)
[2017-09-15] MEDS: MethylPREDNISolone 40 MG/ML VIAL IVP SCH ×3 (10:02→21:04)
[2017-09-15] MEDS: Azithromycin 500 MG in D5% in Water 250 ML IVPB SCH (10:16)
[2017-09-15] MEDS: MOMETASONE FUROATE IH SCH ×2 (10:24→19:56)
[2017-09-15 11:45] LABS: Appearance of Body Fluid Cloudy (Clear); Volume of Body Fluid 25 mL
[2017-09-15 11:50] LABS: Appearance of Body Fluid Cloudy (Clear); Volume of Body Fluid 15 mL
--- NOTE | 2017-09-15 15:38 | Pulmonology Progress Note ---
Date of Encounter: 09/15/17 Time of Encounter: 07:00 Assessment and Plan (1) Acute respiratory failure with hypoxia Current Visit: Yes Status: Acute Patient has this hemoptysis Endobronchial lesion in the background pf Adenocarcinoma vs exacerbtion of chronic bronchitis Will do Bronchoscopy as patient is continually having hemoptysis , his V/Q mismatch is stable.To wean FIO2 as tolerated to Keep saturation above 92% (2) COPD (chronic obstructive pulmonary disease) Current Visit: No Status: Chronic Looks like exacerbation of Chronic bronchitis exacerbation with probable typical and atypical pneumonia. To continue steroids and bronchodilators Qualifiers: COPD type: unspecified COPD Qualified Code(s): J44.9 - Chronic obstructive pulmonary disease, unspecified (3) Community acquired pneumonia Current Visit: Yes Status: Acute Will continue the current antibiotics treatment Qualifiers: Laterality: unspecified laterality Qualified Code(s): J18.9 - Pneumonia, unspecified organism (4) Hemoptysis Current Visit: Yes Status: Acute Patient underwent Bronchoscopy patient tolerated it well , airway exam didnt show any endobronchial lesions but had lot of old blood in the airways , there was no fresh oozing from the mucosa there was no hyperemia looks normal , did BAL in the RML and JONATHAN sent for Microbiology and Cytology. All this bleeding can be due to exacerbation of bronchitis due to infection , can be due to alveolar hemorrhage due to infectious/inflammatory will check SHAYY with reflex panel for MONAE to rule out any rheumatological causes. To follow up with Microbiology and Cytology. Subjective Principal diagnosis: Hemoptysis Interval history: Patient was coughing up blood on and off last evening and overnight nothing today morning . Patient says he is feeling better . Objective PUL Vital signs: Last Vital Signs Temp 98.2 F 09/15/17 14:41 Pulse 81 09/15/17 14:41 Resp 16 09/15/17 15:12 BP 118/57 09/15/17 14:41 Pulse Ox 94 09/15/17 15:12 Auscultation: bilateral: wheezes (mild scattered wheezes ) Results - Laboratory Findings CBC and BMP: 09/15/17 04:00 09/15/17 04:00 PT/INR, D-dimer PT 10.4 Seconds (9.4-12.1) 09/14/17 05:25 Abnormal lab findings: Abnormal lab results RBC 3.74 M/mcL (4.19-5.50) L 09/15/17 04:00 Hgb 12.5 g/dL (12.9-16.9) L 09/15/17 04:00 Hct 36.8 % (37.5-50.1) L 09/15/17 04:00 MCH 33.4 pg (28.0-33.3) H 09/15/17 04:00 Sodium 135 mEq/L (136-145) L 09/15/17 04:00 Glucose 147 mg/dL (70-99) H 09/15/17 04:00 POC Glucose 122 (58-89) H 09/15/17 12:56 B-Natriuretic Peptide 130 pg/mL (0-100) H 09/14/17 05:25 Fluid Appearance Cloudy (Clear) A 09/15/17 08:58 - Clinical Findings Intake & Output: Intake & Output 09/14/17 09/15/17 09/15/17 23:59 07:59 15:59 Intake Total 404 / 404 720 / 720 Balance 404 / 404 720 / 720 Weight 68.447 kg - VTE Documentation of Mechanical Device: Intermittent pneumatic compression device Consult Discharge Plan - Plan [facility]errals: [facility] [Primary Care Provider] -
--- NOTE | 2017-09-15 17:31 | Internal Med Progress Note ---
Date of Encounter: 09/15/17 Time of Encounter: 16:00 - Assessment and plan (1) Acute respiratory failure with hypoxia Current Visit: Yes Status: Acute Assessment and plan: Due to acute bronchitis and underlying lung cancer. Continue supplemental oxygen, wean down FiO2 as tolerated. Home oxygen evaluation prior to discharge. (2) Hemoptysis Current Visit: Yes Status: Acute Assessment and plan: Pulmonology consult appreciated. Improving hemoptysis. Underwent bronchoscopy , no evidence of endobronchial lesion/mass. Bleeding thought to be secondary to alveolar hemorrhage. Continue empiric antibiotics. Follow up SHAYY reflex panel. Supportive care and supplemental O2. Taper down IV steroids as tolerated. When necessary bronchodilators. CT angiogram of the chest shows no evidence of pulmonary embolism, right lower lobe mass, bilateral groundglass opacities. (3) Hypertension Current Visit: Yes Status: Chronic Qualifiers: Hypertension type: essential hypertension Qualified Code(s): I10 - Essential (primary) hypertension (4) CAD (coronary artery disease) Current Visit: Yes Status: Chronic Qualifiers: Coronary Disease-Associated Artery/Lesion type: [place] artery [place] vs. transplanted heart: [place] heart Associated angina: without angina Qualified Code(s): I25.10 - Atherosclerotic heart disease of [place] coronary artery without angina pectoris (5) Tobacco use Current Visit: Yes Status: Chronic Assessment and plan: Continue nicotine transdermal patch. (6) COPD (chronic obstructive pulmonary disease) Current Visit: Yes Status: Chronic Qualifiers: COPD type: unspecified COPD Qualified Code(s): J44.9 - Chronic obstructive pulmonary disease, unspecified (7) Adenocarcinoma of right lung Current Visit: Yes Status: Chronic Assessment and plan: Status post radiation. Follows with oncology as outpatient. - Subjective Interval history: Feels better. Improving hemoptysis and cough. No shortness of breath, fever/ chills. Underwent bronchoscopy today. - Constitutional Vitals: Temp Pulse Resp BP Pulse Ox 98.2 F 81 16 118/57 94 09/15/17 14:41 09/15/17 14:41 09/15/17 15:12 09/15/17 14:41 09/15/17 15:12 General appearance: Present: A&O X 3, answers questions appropriately - Respiratory Respiratory exam: Present: CTAB (Bilateral coarse breath sounds). Absent: accessory muscle use, rales, rhonchi, wheezes - Cardiovascular Cardiovascular exam: Present: RRR, +S1, +S2. Absent: diastolic murmur, gallop, rubs, systolic murmur - GI/Abdominal GI/Abdominal exam: Present: normal bowel sounds, soft, no peritoneal signs. Absent: distended, tenderness - Extremities Exam Extremities exam: Present: full ROM, warm, radial pulses palpable and symmetrical. Absent: calf tenderness, cyanotic, pedal edema - Neurological Exam Neurological exam: Present: CN II-XII intact, oriented X3, no focal deficits. Absent: pronater drift, facial droop, speech deficit Internal Medicine: Result - Labs CBC & Chem 7: 09/16/17 04:17 09/15/17 04:00 Labs: Short CBC 09/14/17 09/15/17 Range/Units 19:22 04:00 WBC 4.6 (4.3-11.1) K/mcL Hgb 13.5 D 12.5 L (12.9-16.9) g/dL Hct 39.9 36.8 L (37.5-50.1) % Plt Count 164 (140-400) K/mcL Neutrophils # 3.6 (1.6-8.9) K/mcL BMP 09/15/17 04:00 Sodium 135 L Potassium 4.3 D Chloride 102 Carbon Dioxide 27 BUN 8 Creatinine 0.75 Glucose 147 H Calcium 8.9 - ABG Interpretation ABG results: PT/INR, D-dimer PT 10.4 Seconds (9.4-12.1) 09/14/17 05:25 - VTE Documentation of Mechanical Device: Intermittent pneumatic compression device Consult Discharge Plan - Plan [facility]errals: [facility] [Primary Care Provider] -
[2017-09-15] MEDS: OLANZapine 5 MG TAB.RAPDIS PO PRN (20:43)
[2017-09-16] MEDS: Ipratropium/Albuterol Neb 3 ML IH SCH ×7 (00:03→23:02)
[2017-09-16 04:37] LABS: Basophils % 0.1 %; Hematocrit 35.8 % (37.5-50.1); Hemoglobin 12.3 g/dL (12.9-16.9); Immature Granulocytes % 0.5 % (0-4); Lymphocytes # 1.3 K/mcL (0.6-4.6); Lymphocytes % 9.1 %; Mean Corpuscular HGB Conc 34.4 g/dL (31.6-35.5); Mean Corpuscular Hemoglobin 33.4 pg (28.0-33.3); Mean Corpuscular Volume 97.3 fL (83.0-100.0); Mean Platelet Volume 9.8 fL (9.4-12.4); Monocytes # 0.8 K/mcL (0.0-1.3); Monocytes % 5.9 %; Neutrophils # 11.8 K/mcL (1.6-8.9); Platelet Count 156 K/mcL (140-400); Red Blood Count 3.68 M/mcL (4.19-5.50); Segmented Neutrophils % 84.4 %
[2017-09-16] MEDS: MethylPREDNISolone 40 MG/ML VIAL IVP SCH (06:12)
[2017-09-16] MEDS: Insulin LISPRO 300 UNITS/3 ML VIAL SQ SCH ×3 (07:37→17:43)
[2017-09-16] MEDS: MOMETASONE FUROATE IH SCH ×2 (07:38→19:50)
[2017-09-16] MEDS: ACAMPROSATE CALCIUM 333 MG PO SCH ×3 (07:38→20:52)
[2017-09-16] MEDS ORDERED: CefTRIAXone 1,000 MG VIAL ONE (07:49)
[2017-09-16] MEDS: Nicotine 14 MG PATCH.TD24 TD SCH (08:02)
[2017-09-16] MEDS: Lisinopril 20 MG TABLET PO SCH (08:02)
[2017-09-16] MEDS: Multivit/Ca/Min/Fe/FA 1 TAB TABLET PO SCH (08:03)
[2017-09-16] MEDS: amLODIPine 5 MG TABLET PO SCH (08:03)
[2017-09-16] MEDS: Pantoprazole 40 MG VIAL IVP SCH (08:03)
[2017-09-16] MEDS: cefTRIAXone 1,000 MG in Water for inj. (sterile) 10 ML IVP SCH (08:03)
[2017-09-16] MEDS: hydroCHLOROthiazide 25 MG TABLET PO SCH (08:04)
[2017-09-16] MEDS: Azithromycin 500 MG in D5% in Water 250 ML IVPB SCH (11:03)
[2017-09-16] MEDS: OLANZapine 5 MG TAB.RAPDIS PO PRN ×2 (12:19→20:47)
--- NOTE | 2017-09-16 15:13 | Electrocardiograph Report ---
KatinaPixel[facility] Test Date: 2017-09-14 Pat Name: Twin Pack Department: [id number] Room: 3B64 Gender: M Business Project Manager: : 1945 Requested By: Muna Ramirez Order Number: [id number] Reading MD: Gennaro Palacios MD Measurements Intervals [place] Rate: 97 P: ME: 0 QRS: 12 QRSD: 96 T: 48 QT: 447 QTc: 501 Interpretive Statements Sinus RHYTHM ST DEVIATION AND MARKED T-WAVE ABNORMALITY, CONSIDER ANTEROLATERAL ISCHEMIA [- 0.5+ mV T WAVE IN I/aVL/V3-V6] pvcs Electronically Signed On 09-16-2017 15:12:01 EDT by Gennaro Palacios MD
--- NOTE | 2017-09-16 16:54 | Internal Med Progress Note ---
Date of Encounter: 09/16/17 Time of Encounter: 15:00 - Assessment and plan (1) Acute respiratory failure with hypoxia Current Visit: Yes Status: Acute Assessment and plan: Due to acute bronchitis and underlying lung cancer. Continue supplemental oxygen, wean down FiO2 as tolerated. Currently saturating well without supplemental oxygen. (2) Hemoptysis Current Visit: Yes Status: Acute Assessment and plan: Pulmonology consult appreciated. Underwent bronchoscopy, no evidence of endobronchial lesion/mass. Bleeding thought to be secondary to alveolar hemorrhage. Continue empiric antibiotics. Follow up SHAYY reflex panel. Supportive care and supplemental O2. Taper down IV steroids as tolerated. When necessary bronchodilators. CT angiogram of the chest shows no evidence of pulmonary embolism, right lower lobe mass, bilateral groundglass opacities. (3) Hypertension Current Visit: Yes Status: Chronic Qualifiers: Hypertension type: essential hypertension Qualified Code(s): I10 - Essential (primary) hypertension (4) CAD (coronary artery disease) Current Visit: Yes Status: Chronic Qualifiers: Coronary Disease-Associated Artery/Lesion type: [place] artery [place] vs. transplanted heart: [place] heart Associated angina: without angina Qualified Code(s): I25.10 - Atherosclerotic heart disease of [place] coronary artery without angina pectoris (5) Tobacco use Current Visit: Yes Status: Chronic Assessment and plan: Continue nicotine transdermal patch. (6) COPD (chronic obstructive pulmonary disease) Current Visit: Yes Status: Chronic Qualifiers: COPD type: unspecified COPD Qualified Code(s): J44.9 - Chronic obstructive pulmonary disease, unspecified (7) Adenocarcinoma of right lung Current Visit: Yes Status: Chronic Assessment and plan: Status post radiation. Follows with oncology as outpatient. - Subjective Interval history: Reports not feeling too good today as he continues to have hemoptysis. Improving shortness of breath, no fever or chills. Improving oxygen requirements. - Constitutional Vitals: Temp Pulse Resp BP Pulse Ox 97.7 F 85 17 106/58 96 09/16/17 15:28 09/16/17 15:28 09/16/17 15:49 09/16/17 15:28 09/16/17 15:49 General appearance: Present: A&O X 3, answers questions appropriately - Respiratory Respiratory exam: Present: CTAB (Bilateral coarse breath sounds). Absent: accessory muscle use, rales, rhonchi, wheezes - Cardiovascular Cardiovascular exam: Present: RRR, +S1, +S2. Absent: diastolic murmur, gallop, rubs, systolic murmur - GI/Abdominal GI/Abdominal exam: Present: normal bowel sounds, soft, no peritoneal signs. Absent: distended, tenderness - Extremities Exam Extremities exam: Present: full ROM, warm, radial pulses palpable and symmetrical. Absent: calf tenderness, cyanotic, pedal edema - Neurological Exam Neurological exam: Present: CN II-XII intact, oriented X3, no focal deficits. Absent: pronater drift, facial droop, speech deficit Internal Medicine: Result - Labs CBC & Chem 7: 09/16/17 04:17 09/15/17 04:00 Labs: Short CBC 09/16/17 Range/Units 04:17 WBC 14.0 H D (4.3-11.1) K/mcL Hgb 12.3 L (12.9-16.9) g/dL Hct 35.8 L (37.5-50.1) % Plt Count 156 (140-400) K/mcL Neutrophils # 11.8 H (1.6-8.9) K/mcL - ABG Interpretation ABG results: PT/INR, D-dimer PT 10.4 Seconds (9.4-12.1) 09/14/17 05:25 - VTE Documentation of Mechanical Device: Intermittent pneumatic compression device Consult Discharge Plan - Plan Referrals: [facility] [Primary Care Provider] -
--- NOTE | 2017-09-16 18:27 | Pulmonology Progress Note ---
Date of Encounter: 09/16/17 Time of Encounter: 08:30 Assessment and Plan (1) Acute respiratory failure with hypoxia Current Visit: Yes Status: Acute Patient has hemoptysis slowly getting better , bronchoscopy showed no evidence of endobronchial lesion but the blood was there in the airways bilaterally more looks like a diffuse bleeding bilaterally may be from small airways or alveoli . (2) COPD (chronic obstructive pulmonary disease) Current Visit: Yes Status: Chronic Looks like exacerbation of Chronic bronchitis exacerbation with probable typical and atypical pneumonia. To continue steroids and bronchodilators and antibiotics . BAL microbiology pending Qualifiers: COPD type: unspecified COPD Qualified Code(s): J44.9 - Chronic obstructive pulmonary disease, unspecified (3) Community acquired pneumonia Current Visit: Yes Status: Acute Will continue the current antibiotics treatment waiting BAL culture and other microbiology work up. Qualifiers: Laterality: unspecified laterality Qualified Code(s): J18.9 - Pneumonia, unspecified organism (4) Hemoptysis Current Visit: Yes Status: Acute Patient underwent Bronchoscopy patient tolerated it well , airway exam didnt show any endobronchial lesions but had lot of old blood in the airways , there was no fresh oozing from the mucosa there was no hyperemia looks normal , did BAL in the RML and JONATHAN sent for Microbiology and Cytology. All this bleeding can be due to exacerbation of bronchitis due to infection , can be due to alveolar hemorrhage due to infectious/inflammatory will check SHAYY with reflex panel for MONAE to rule out any rheumatological causes. Prelim BAL shows rich in neutrophils with cytology shows lot of acute inflammatory cells no malignant cells noted Subjective Principal diagnosis: Hemoptysis Interval history: Patient says he is overall getting better ,patient still coughing up blood the amount of decreased when compared initial amount when he came to the ER. Objective PUL Vital signs: Last Vital Signs Temp 97.7 F 09/16/17 15:28 Pulse 85 09/16/17 15:28 Resp 17 09/16/17 15:49 BP 106/58 09/16/17 15:28 Pulse Ox 96 09/16/17 15:49 Auscultation: bilateral: wheezes (mild scattered wheezes ) Results - Laboratory Findings CBC and BMP: 09/16/17 04:17 09/15/17 04:00 PT/INR, D-dimer PT 10.4 Seconds (9.4-12.1) 09/14/17 05:25 Abnormal lab findings: Abnormal lab results WBC 14.0 K/mcL (4.3-11.1) H D 09/16/17 04:17 RBC 3.68 M/mcL (4.19-5.50) L 09/16/17 04:17 Hgb 12.3 g/dL (12.9-16.9) L 09/16/17 04:17 Hct 35.8 % (37.5-50.1) L 09/16/17 04:17 MCH 33.4 pg (28.0-33.3) H 09/16/17 04:17 Neutrophils # 11.8 K/mcL (1.6-8.9) H 09/16/17 04:17 Sodium 135 mEq/L (136-145) L 09/15/17 04:00 Glucose 147 mg/dL (70-99) H 09/15/17 04:00 POC Glucose 141 (58-89) H 09/15/17 20:28 B-Natriuretic Peptide 130 pg/mL (0-100) H 09/14/17 05:25 Fluid Appearance Cloudy (Clear) A 09/15/17 08:58 - Microbiology Findings Microbiology Findings: Microbiology, Last 48 Hours 09/15/17 08:58 Acid Fast Stain - Final Left Upper Lobe Lung 09/15/17 08:51 Acid Fast Stain - Final Right Middle Lobe Lung 09/15/17 08:58 Gram Stain - Final Left Upper Lobe Lung 09/15/17 08:51 Gram Stain - Final Right Middle Lobe Lung 09/15/17 08:51 Respiratory Culture - Preliminary Right Middle Lobe Lung No growth. 09/15/17 08:58 Respiratory Culture - Preliminary Left Upper Lobe Lung No growth. - Clinical Findings Intake & Output: Intake & Output 09/16/17 09/16/17 09/16/17 07:59 15:59 23:59 Intake Total 350 / 350 680 / 680 Balance 350 / 350 680 / 680 Weight 66.361 kg - VTE Documentation of Mechanical Device: Intermittent pneumatic compression device Consult Discharge Plan - Plan [facility]: [facility] [Primary Care Provider[facility] -
[2017-09-17] MEDS: Ipratropium/Albuterol Neb 3 ML IH SCH ×3 (03:56→11:01)
[2017-09-17 05:21] LABS: Basophils % 0.2 %; Eosinophils % 0.1 %; Hemoglobin 12.8 g/dL (12.9-16.9); Immature Granulocytes % 0.2 % (0-4); Lymphocytes # 2.5 K/mcL (0.6-4.6); Lymphocytes % 27.2 %; Mean Corpuscular HGB Conc 33.7 g/dL (31.6-35.5); Mean Corpuscular Hemoglobin 33.4 pg (28.0-33.3); Mean Corpuscular Volume 99.2 fL (83.0-100.0); Mean Platelet Volume 9.8 fL (9.4-12.4); Monocytes # 0.6 K/mcL (0.0-1.3); Monocytes % 6.9 %; Neutrophils # 5.9 K/mcL (1.6-8.9); Platelet Count 165 K/mcL (140-400); Red Blood Count 3.83 M/mcL (4.19-5.50); Red Cell Distribution Width 13.2 % (11.5-14.5); Segmented Neutrophils % 65.4 %
[2017-09-17] MEDS: MOMETASONE FUROATE IH SCH (07:49)
[2017-09-17] MEDS: Insulin LISPRO 300 UNITS/3 ML VIAL SQ SCH ×2 (08:13→13:03)
[2017-09-17] MEDS: cefTRIAXone 1,000 MG in Water for inj. (sterile) 10 ML IVP SCH (08:15)
[2017-09-17] MEDS: Nicotine 14 MG PATCH.TD24 TD SCH (08:16)
[2017-09-17] MEDS: Lisinopril 20 MG TABLET PO SCH (08:16)
[2017-09-17] MEDS: Pantoprazole 40 MG VIAL IVP SCH (08:16)
[2017-09-17] MEDS: amLODIPine 5 MG TABLET PO SCH (08:17)
[2017-09-17] MEDS: Multivit/Ca/Min/Fe/FA 1 TAB TABLET PO SCH (08:17)
[2017-09-17] MEDS: hydroCHLOROthiazide 25 MG TABLET PO SCH (08:17)
[2017-09-17] MEDS: ACAMPROSATE CALCIUM 333 MG PO SCH ×2 (08:26→13:04)
[2017-09-17] MEDS ORDERED: MethylPREDNISolone 40 MG/ML VIAL IVP SCH (09:00)
[2017-09-17] MEDS: Azithromycin 500 MG in D5% in Water 250 ML IVPB SCH (10:50)
--- NOTE | 2017-09-17 11:24 | Pulmonology Progress Note ---
Date of Encounter: 09/17/17 Time of Encounter: 11:23 Assessment and Plan (1) Hemoptysis Current Visit: Yes Status: Acute This is likely secondary to acute infectious process and is resolving. Status post bronchoscopy cytology consistent with acute inflammatory cells. (2) Tobacco use Current Visit: Yes Status: Chronic Encouraged patient to remain tobacco free he should be discharged with nicotine replacement such as nicotine patch or gum (3) COPD (chronic obstructive pulmonary disease) Current Visit: Yes Status: Chronic Recommend 5 days of intraoral prednisone 40 mg the 5 days should include the days that he received IV formulation. Continue schedule bronchodilators and prior to discharge patient should be instructed on use of a long acting muscarinic antagonist such as Spiriva 18 g daily he will also need to continue his short acting beta agonist as needed we encouraged him to follow in pulmonary clinic Qualifiers: COPD type: unspecified COPD Qualified Code(s): J44.9 - Chronic obstructive pulmonary disease, unspecified (4) Acute respiratory failure with hypoxia Current Visit: Yes Status: Acute This is resolved and was likely related to pneumonia. He will need walking desaturation study prior to discharged for evaluation of ongoing O2 although I do not think this will be necessary (5) Community acquired pneumonia Current Visit: Yes Status: Acute De-escalation to oral antimicrobial to complete 7 day course such as a respiratory fluoroquinolone (Levaquin) the seven-day should include the desat his received IV formulation while inpatient. Cultures thus far remain negative Thank you so much for consulting the pulmonary service we will sign off at this time please call with any questions or should his clinical course change Qualifiers: Laterality: right Lung location: unspecified part of lung Qualified Code( s): J18.9 - Pneumonia, unspecified organism Subjective Principal diagnosis: Hemoptysis Interval history: Patient denies any more episodes of coughing up bright red blood. He does have occasional dark blood mixed with mucus. Otherwise he says overall he is improving. Encouragingly he has made the decision to stop smoking and is wearing a nicotine patch today Objective PUL Vital signs: Last Vital Signs Temp 98.4 F 09/17/17 07:38 Pulse 82 09/17/17 07:38 Resp 16 09/17/17 11:01 BP 148/79 09/17/17 07:38 Pulse Ox 93 09/17/17 11:01 General appearance: no acute distress Eyes: nonicteric Auscultation: bilateral: rhonchi (Faint) Cardiovascular: regular rate and rhythm Gastrointestinal: normoactive bowel sounds Extremities: no edema Results - Laboratory Findings CBC and BMP: 09/17/17 04:34 09/15/17 04:00 PT/INR, D-dimer PT 10.4 Seconds (9.4-12.1) 09/14/17 05:25 Abnormal lab findings: Abnormal lab results RBC 3.83 M/mcL (4.19-5.50) L 09/17/17 04:34 Hgb 12.8 g/dL (12.9-16.9) L 09/17/17 04:34 MCH 33.4 pg (28.0-33.3) H 09/17/17 04:34 Sodium 135 mEq/L (136-145) L 09/15/17 04:00 Glucose 147 mg/dL (70-99) H 09/15/17 04:00 POC Glucose 110 (58-89) H 09/16/17 20:10 B-Natriuretic Peptide 130 pg/mL (0-100) H 09/14/17 05:25 Fluid Appearance Cloudy (Clear) A 09/15/17 08:58 - Microbiology Findings Microbiology Findings: Microbiology, Last 48 Hours 09/17/17 07:55 Legionella Antigen - Final Urine,Clean Catch 09/15/17 08:58 Legionella Culture - Final Left Upper Lobe Lung 09/15/17 08:51 Legionella Culture - Final Right Middle Lobe Lung 09/15/17 08:58 Acid Fast Stain - Final Left Upper Lobe Lung 09/15/17 08:51 Acid Fast Stain - Final Right Middle Lobe Lung 09/15/17 08:58 Gram Stain - Final Left Upper Lobe Lung 09/15/17 08:51 Gram Stain - Final Right Middle Lobe Lung 09/15/17 08:51 Respiratory Culture - Preliminary Right Middle Lobe Lung No growth. 09/15/17 08:58 Respiratory Culture - Preliminary Left Upper Lobe Lung No growth. - Clinical Findings Intake & Output: Intake & Output 09/16/17 09/17/17 09/17/17 23:59 07:59 15:59 Intake Total 360 / 360 Balance 360 / 360 Weight 65.771 kg - VTE Documentation of Mechanical Device: Intermittent pneumatic compression device Consult Discharge Plan - Plan [facility]errals: [facility] [Primary Care Provider[facility] - 09/29/17 12:30 pm
[2017-09-17 11:59] VITALS: BP 130/72
[2017-09-17 12:14] LABS: HSV Source BAL LUL; HSV Source BAL RML
--- NOTE | 2017-09-17 13:34 | Discharge Summary ---
Date of Encounter: 09/17/17 Time of Encounter: 13:31 - Discharge Diagnosis (1) Acute respiratory failure with hypoxia Priority: Primary Status: Resolved (2) Hemoptysis Priority: Primary Status: Acute (3) Hypertension Priority: Secondary Status: Chronic Qualifiers: Hypertension type: essential hypertension Qualified Code(s): I10 - Essential (primary) hypertension (4) CAD (coronary artery disease) Priority: Secondary Status: Chronic Qualifiers: Coronary Disease-Associated Artery/Lesion type: [place] artery [place] vs. transplanted heart: [place] heart Associated angina: without angina Qualified Code(s): I25.10 - Atherosclerotic heart disease of [place] coronary artery without angina pectoris (5) Tobacco use Priority: Secondary Status: Chronic (6) COPD (chronic obstructive pulmonary disease) Priority: Secondary Status: Chronic Qualifiers: COPD type: unspecified COPD Qualified Code(s): J44.9 - Chronic obstructive pulmonary disease, unspecified (7) Adenocarcinoma of right lung Priority: Secondary Status: Chronic - Discharge Medications Prescriptions: levoFLOXacin [Levaquin] 500 mg PO DAILY #5 tablet PredniSONE [Deltasone] 40 mg PO DAILY #4 tablet Tiotropium [Spiriva] 18 mcg IH DAILY #30 capsule Home Medications: Albuterol Sulfate [Albuterol Inhaler] 2 puff IH Q6HR PRN 07/03/17 [History] Aspirin Enteric Coated [Aspirin EC] 325 mg PO DAILY 07/03/17 [History] Atorvastatin Calcium [Lipitor] 10 mg PO DAILY 07/03/17 [History] Lisinopril [Zestril] 40 mg PO DAILY 07/03/17 [History] Metoprolol [Lopressor] 25 mg PO BID 07/03/17 [History] Mometasone Furoate [Asmanex] 2 puff IH BID 07/03/17 [History] Multivitamin [Multi-Day Vitamins] 1 each PO DAILY 07/03/17 [History] OLANZapine [Zyprexa] 5 mg PO QID PRN 07/03/17 [History] amLODIPine [Norvasc] 5 mg PO DAILY 07/03/17 [History] hydrOXYzine HCl [Hydroxyzine HCl] 25 mg PO QID PRN 07/03/17 [History] hydroCHLOROthiazide [Hydrochlorothiazide] 12.5 mg PO DAILY 07/03/17 [History] Acamprosate Calcium 333 mg PO TID 09/14/17 [History] Ranitidine HCl [Heartburn Relief] 150 mg PO BID 09/14/17 [History] PredniSONE [Deltasone] 40 mg PO DAILY #4 tablet 09/17/17 [Rx] Tiotropium [Spiriva] 18 mcg IH DAILY #30 capsule 09/17/17 [Rx] levoFLOXacin [Levaquin] 500 mg PO DAILY #5 tablet 09/17/17 [Rx] Allergies/Adverse Reactions: 3 Allergy/AdvReac Type Severity Reaction Status Date / Time codeine Allergy Hives Verified 08/19/17 10:49 Procedures/tests Complete & Pending: Procedures Performed prior 72 hours Category Date Time Status ECG 12 lead ECG [ECG] Routine Y 09/14/17 20:03 Completed Date of admission: 09/14/17 13:51 Primary care physician: PCP [place] Consults: 09/14/17 14:43 Consult to [employer] [CONS] Routine Reason for SW Consult: [place] patient, lung cancer, may need out patient oxygen. Lives at [facility] on [place] grounds. Patient is on [facility]. Discharging clinician: Penny Strong Anticipated date of discharge: 09/17/17 - Patient Status Disposition: Home, Self-Care Condition: Good Functional capacity at discharge: independent ambulation Overall status at discharge: patient is progressing back to baseline - Discharge Instructions Instructions: Prednisone (By mouth), Levofloxacin (By mouth), Tiotropium (By breathing) Follow Up With: [facility] [Provider Group] [place],PCP [Primary Care Provider] - 09/29/17 12:30 pm Additional Instructions: F/up with [facility] in 3-4 weeks - Diet and Activity Activity: resume usual activities as tolerated Diet: low fat, low cholesterol, low salt diet Hospital course: Mr. Pack is a 72 year old male with h/o lung cancer was admitted with hemoptysis and cough and dyspnea. CTA chest showed no pE, RLL mass from his known cancer, B/L ground glass opacities, could be infectious. He was started on empiric antibiotics and IV steroids. Pulmonology was consulted and he underwent bronchoscopy showing blood but no e/o- endobronchial lesion or mass, his hemoptysis was thought to be likely from alveolar source from ?bronchitis/ PNA. His O2 requirements improved gradually, he saturated well on room air and hemoptysis improved. He is stable for discharge with outpatient Pulmonology f/ up. Respiratory gram stain, culture, Legionella Ag, acid fast stain have remained negative; biopsy pending. Time spent discussing smoking cessation with patient: 3 to 10 minutes - Time Spent with Patient Total time spent providing and/or coordinating discharge services: Greater than 30 minutes (40 min) - Constitutional Vitals: Temp Pulse Resp BP Pulse Ox 98.5 F 80 14 130/72 93 09/17/17 11:58 09/17/17 11:58 09/17/17 11:58 09/17/17 11:58 09/17/17 11:58 General appearance: Present: A&O X 3, answers questions appropriately - Respiratory Respiratory exam: Present: CTAB (coarse breath sounds B/L). Absent: accessory muscle use, rales, rhonchi, wheezes - VTE Documentation of Mechanical Device: Intermittent pneumatic compression device
[2017-09-18 10:33] LABS: ANA IgG by ELISA NONE DETECTED (None Detected)
--- NOTE | 2017-09-18 18:39 | Electrocardiograph Report ---
[place] [id number] Test Date: 2017-09-14 Pat Name: Twin Pack Department: 113 Room: 3B Gender: M Regulatory Compliance Manager: JULI : 1945 Requested By: Penny Strong Order Number: [id number] Reading MD: David Melara Measurements Intervals [place] Rate: 84 P: 25 LA: 155 QRS: 34 QRSD: 106 T: 46 QT: 374 QTc: 416 Interpretive Statements SINUS RHYTHM WITH FREQUENT VENTRICULAR PREMATURE COMPLEXES IN A BIGEMINAL PATTERN ABNORMAL RHYTHM ECG Electronically Signed On 09-18-2017 18:37:48 EDT by David Melara
== END 2017-09-17 15:04 | disposition home or self-care (01) | DRG 166 ==
LOC: EMEROO 05:03 → 3BNU 05:03 → SUATTDRO 13:51
PROVIDERS: ADMIT Registered Nurse; ATTEND Internal Medicine
PROC: ENDOBRF (2017-09-15 08:00)